=== PATIENT | female | born 1955 | race Caucasian/White ===

== ENCOUNTER 2018-09-09 08:41 | Day surgery (SDC) | payer MEDICARE, OTHER ==
[2018-09-09] VITALS (11 sets, daily range): BP systolic 99–152; BP diastolic 54–93; PULSE 83–96; RESP 11–23; Ht 144.8 cm; Wt 69.8 kg
[~2018-09-09] VITALS: Ht 144.8 cm; Wt 69.8 kg
[2018-09-09] MEDS ORDERED: ISOS30TA67 PO (09:06)
[2018-09-09] MEDS ORDERED: GABA100C14 PO (09:09)
[2018-09-09] MEDS ORDERED: LOSA50TA14 PO (09:09)
[2018-09-09] MEDS ORDERED: ALEN70TA5 PO (09:10)
[2018-09-09] MEDS ORDERED: CHOL500010 PO (09:10)
[2018-09-09] MEDS ORDERED: METO-335 PO (09:11)
[2018-09-09] MEDS ORDERED: PENT400T9 PO (09:12)
[2018-09-09] MEDS ORDERED: AMLO-147 PO (09:12)
[2018-09-09] MEDS ORDERED: ASPI81TA52 PO (09:12)
[2018-09-09] MEDS ORDERED: ATOR40TA68 PO (09:13)
[2018-09-09] MEDS ORDERED: MELO7.5T38 PO (09:13)
[2018-09-09] MEDS ORDERED: FURO40TA4 PO (09:13)
[2018-09-09] MEDS ORDERED: POTA10TA37 PO (09:14)
[2018-09-09] MEDS ORDERED: PANT40TA3 PO (09:14)
[2018-09-09] MEDS ORDERED: SOD CHLORIDE 0.9% 1,000 ML IV SCH ×2 (10:00→11:03)
[2018-09-09] MEDS ORDERED: HEPARIN 1000 UNITS/ML 10 ML INJ ONE (10:20)
[2018-09-09] MEDS ORDERED: IODIXANOL LOCM 100 ML BTL ONE (10:20)
[2018-09-09] MEDS ORDERED: LIDOCAINE 1% (MDV) 20 ML INJ ONE (10:20)
[2018-09-09] MEDS ORDERED: VERAPAMIL 5 MG INJ ONE (10:21)
[2018-09-09] MEDS ORDERED: MIDAZOLAM 1 MG/ML 2 ML INJ ONE (10:21)
[2018-09-09] MEDS ORDERED: FENTAnyl 50 MCG/ML VIAL ONE (10:21)
[2018-09-09] MEDS ORDERED: NITROGLYCERIN (IC) 100 MCG/ML INJ ONE (10:21)
--- NOTE | 2018-09-09 11:24 | OPR ---
Date/Time of Note Date/Time of Note DATE: 09/09/18 TIME: 11:22 Operative Report Free Text/Dictation Procedure Date: 09/09/18 Preoperative Diagnosis 3VCAD Postoperative Diagnosis 3VCAD Operation/Procedure Performed Left heart cath right and left coronary angiography supervision/interpretation of right and left coronary angiography left radial artery approach Surgeon: Harvinder Pradhan MD Pediatrician Active Practice: none Anesthesia Type: other (none) Anesthesiologist: none Estimated Blood Loss: minimal Transfusion: none Specimen: none Grafts/Implants: none Tubes/Drains: none Complications: none Pt Condition Post Procedure: stable Procedure Description The patient brought [facility] after informed consent obtained. The right radial artery was cannulated using the seldinger technique and a 5F sheath was inserted. Thereafter, bilateral selective angiography was performed intially with a [place] catheter, but not engaged well, so then used a JR4 and JL 3.5catheters , respectively. The procedure was tolerated well with out any complications. Findings: LM - normal LAD - 100% Mid with L>L collaterals CX - 70% Mid RCA - 80%prox/mid, 80% distal Plan: CABG HARVINDER PRADHAN MD Sep 09, 2018 11:24
[2018-09-09] MEDS ORDERED: ACETAMINOPHEN 325 MG TAB PO PRN (11:30)
[2018-09-09] MEDS ORDERED: AL HYDROX/MG HYDROX/SIMETH 30 ML CUP PO PRN (11:30)
[2018-09-09] MEDS ORDERED: ONDANSETRON 4 MG INJ IV PRN (11:30)
--- NOTE | 2018-09-16 16:59 | RADRPT ---
Vent Rate: 83 bpm RR Interval: 720 msec IN Interval: 145 msec QRS Duration: 81 msec QT Interval: 413 msec QTC Interval: 487 msec P-R-T [place]: 63 - 43 - 64 degrees Sinus rhythm...normal P axis, V-rate 50- 99 Electronically Signed By: Yosi Campbell
== END 2018-09-09 14:45 | disposition home or self-care (01) ==
LOC: SDS 08:41
PROVIDERS: ATTEND Internal Medicine Interventional Cardiology
DX: I25.10 Atherosclerotic heart disease of native coronary artery without angina pectoris (principal); I10 Essential (primary) hypertension
CPT/HCPCS: 80048; 85025; 85610; 85730; 93005; 93454; C1887; J1644; J2250; J3010; Q9967